=== PATIENT | female | born 1940 | race Caucasian/White ===

== ENCOUNTER 2017-07-21 11:20 | Inpatient (IN) | payer MEDICARE, OTHER ==
[2017-07-21 11:47] LABS: % BASOPHILS 0.3 % (0.0-2.0); % EOSINOPHILS 1.7 % (0.0-5.0); % LYMPHOCYTES 17.9 % (20.0-50.0); % MONOCYTES 5.9 % (2.0-10.0); % NEUTROPHILS 74.2 % (40.0-80.0); EOSINOPHILE ABSOLUTE 0.1 Th/cmm (0.1-0.4); HEMATOCRIT 28.9 % (41.0-60); HEMOGLOBIN 9.7 gm/dL (12-16); LYMPHOCYTE ABSOLUTE 1.3 Th/cmm (1.5-3.0); MEAN CELL VOLUME 85.1 fl (81-100); MEAN CORPUSCULAR HEMOGLOBIN 28.6 pg (27.0-31.0); MEAN CORPUSCULAR HGB CONC 33.6 pg (28.0-36.0); MEAN PLATELET VOLUME 7.4 fl; MONOCYTE ABSOLUTE 0.4 Th/cmm (0.3-1.0); NEUTROPHILE ABSOLUTE 5.5 Th/cmm (1.8-8.0); PLATELET COUNT 338 Th/cmm (150-400); RED BLOOD COUNT 3.39 Mil/cmm (3.80-5.20); WHITE BLOOD COUNT 7.3 Th/cmm (4.8-10.8)
[2017-07-21 12:09] LABS: ALB/GLOB RATIO 1.2 (1.0-1.8); ALBUMIN 4.2 gm/dL (3.7-5.3); ALKALINE PHOSPHATASE 77 U/L (34-104); ANION GAP 15.6 (7.0-16.0); BILIRUBIN,TOTAL 0.3 mg/dL (0.3-1.0); BUN - UREA NITROGEN 32 mg/dL (7-25); CALCIUM SERUM 9.7 mg/dL (8.6-10.3); CARBON DIOXIDE 22.9 mEq/L (21.0-31.0); CHLORIDE 97 mEq/L (98-107); CHOLESTEROL 135 mg/dL (<200); CREATININE - SERUM 1.2 mg/dL (0.6-1.2); GLUCOSE 136 mg/dL (70-105); HDL -HIGH DENSITY LIPOPROTEIN 46 mg/dL (23-92); POTASSIUM SERUM 3.5 mEq/L (3.5-5.1); SGOT 29 U/L (13-39); SGPT/ALT 24 U/L (7-52); SODIUM SERUM 132 mEq/L (136-145); TOTAL PROTEIN,SERUM 7.7 gm/dL (6.0-8.3); TRIGLYCERIDES 229 mg/dL (<150)
[2017-07-21 12:11] LABS: ALB/GLOB RATIO 1.2 (1.0-1.8); ALBUMIN 4.2 gm/dL (3.7-5.3); BILIRUBIN,DIRECT 0.06 mg/dL (0.0-0.2); BILIRUBIN,TOTAL 0.4 mg/dL (0.3-1.0); TOTAL PROTEIN,SERUM 7.7 gm/dL (6.0-8.3)
[2017-07-21] MEDS ORDERED: Non-Formulary Item 1 EA (Acetaminophen [8 Hour] 650 MG) PO PRN (14:20)
[2017-07-21 14:21] VITALS: BP 181/83
[2017-07-21] MEDS ORDERED: Pneumococcal Vaccine 0.5 mL Vial IM ONE (15:01)
[2017-07-21] MEDS: INSULIN ASPART SLIDING SCALE 100 UNITS/ML UNIT SUBQ SCH ×2 (16:52→20:50)
--- NOTE | 2017-07-21 20:39 | ER Physician Documentation ---
DATE OF SERVICE: 07/21/2017 She is here for psych evaluation and to check for any medical conditions by Dr. Rabia Barba. They wanted us to check if there are any serious medical problems. If not, then the patient can go to psych [facility]. The patient has been combative for the past 2 days. The patient's vital signs were taken by the triage nurse at 11:30 in the morning and patient's vital signs showed temperature 98.2, pulse 101, respirations 23, blood pressure 190/66, then it came down to 150/57 or so. Oxygen saturation 97%. Medical treatment, etc., are all in the chart. The patient's physician is Dr. Rabia Barba. The patient's other physician is, Dr. Shahriar Calvillo. [facility], primary contact is Rduolph Shetty. The patient's family is Siomara Jeramie, Lowell Jeramie, Anders Natarajan, Cam Shaymatt. These are the 4 people. The patient was asked questions about her complaint. She denies any specific complaint. REVIEW OF SYSTEMS: Essentially benign and negative. HISTORY OF PRESENT ILLNESS: The patient has no history of any chest pain, myocardial infarction, rheumatic fever, valvular heart disease, or pericardial disease. No lung pneumonia, TB, pulmonary embolism. No history constitutional symptoms. The patient came from the psych facility to this facility for continuation of the treatment. The patient came from [address] [address]. The patient's Medicaid number, [facility] [id number]. REVIEW OF SYSTEMS: EYES: Within normal limits, no double vision, no blurring, or no blindness. CENTRAL NERVOUS SYSTEM: No history of TIA, stroke, encephalitis, meningitis. PULMONARY: No pneumonia or TB, or pulmonary embolism. GENITOURINARY: The patient has chronic kidney disease stage 3, moderate. The patient has hyperlipidemia, anxiety disorder, type 2 diabetes mellitus, hypertension, chronic kidney disease, stage 1 to stage IV chronic kidney disease or unspecified chronic kidney disease. The patient's abdomen has no complaints. The patient will occasionally take some iron tablets, a Colace suppository, etc. For her hypertension, she takes losartan, potassium, hydrochloride tablet 100/25 mg 1 tablet by mouth a day, lovastatin. She has hypercholesterolemia, milk of magnesia, multivitamin, etc., have been taken by the patient. If the medical clearance comes back to be negative, then the patient will be transferred to the psych facility. CARDIAC: No angina pectoris, myocardial infarction, rheumatic fever, valvular heart disease, etc. CENTRAL NERVOUS SYSTEM: The patient has anxiety, Alzheimer's disease, dementia. She has anxiety. She has hypertension, hypertensive heart disease. She has diabetes mellitus. The patient had x-rays of the wrist because of some injury and it was found to be within normal limits. LABORATORY DATA: The patient had lab workup done at the [facility] showing BUN to be 25, creatinine 0.9, sodium 141, potassium 4.5, chloride 103, CO2 of 28. White count is normal. Other lab workup was found to be normal at the [facility], but we will check it out here. PHYSICAL EXAMINATION: GENERAL: The patient appears to be awake, alert, oriented, not in any acute cardiac distress. She appears to be ____. HEENT: Normal. Jugular venous pressure is normal. She was admitted from [facility] on 07/10/2016. ____ exam benign and negative. NECK: Supple. Eyes are normal. Conjunctivae pink. Sclerae white. No evidence of any jaundice and no deep vein thrombophlebitis. No cyanosis, petechia, ecchymosis. CHEST: Clear. Trachea being central. Good air entry in both lungs. No rales, rhonchi or bronchial breathing. ABDOMEN: Soft, benign, negative. Liver and spleen not enlarged. No free fluid in abdominal cavity. CENTRAL NERVOUS SYSTEM: Within normal limits. HEART: Reveals normal heart sounds. No fourth heart sound. Second heart sound is physiologically split. Blood pressure is 150/60, it has come back to normal. CLINICAL IMPRESSION: The patient has anxiety disorder, hypertensive disorder. The patient has Alzheimer's disease. The patient has a history of renal failure of stage I to stage IV of chronic kidney disease, hyperlipidemia and dementia classified as ____ without behavioral disturbances. The patient has the diseases that I mentioned earlier, including dementia and chronic kidney disease, hyperlipidemia, anxiety disorder, etc. We are getting some lab workup, EKG, chest x-ray and if they return normal, then the patient will be sent to the psych facility. JOB# [id number]
[2017-07-21 21:30] LABS: A1C % 5.8 % (4.0-6.0)
[2017-07-22] MEDS: INSULIN ASPART SLIDING SCALE 100 UNITS/ML UNIT SUBQ SCH ×4 (06:39→21:27)
[2017-07-22 07:59] LABS: ANION GAP 10.1 (7.0-16.0); BUN - UREA NITROGEN 34 mg/dL (7-25); CALCIUM SERUM 9.9 mg/dL (8.6-10.3); CHLORIDE 99 mEq/L (98-107); CREATININE - SERUM 1.3 mg/dL (0.6-1.2); GLUCOSE 117 mg/dL (70-105); POTASSIUM SERUM 4.1 mEq/L (3.5-5.1); SODIUM SERUM 132 mEq/L (136-145)
--- NOTE | 2017-07-22 08:25 | Diagnostic Imaging Report ---
CHEST X-RAY: AP view INDICATION: Pneumonia COMPARISON: None FINDINGS: Chronic lung changes are seen with no focal consolidation or effusions. There is 4 mm density seen along the left lateral lung zone projecting along the left anterior third rib. No focal consolidation or effusions. Mild cardiomegaly is noted atherosclerosis. Degenerative changes of spine are noted. IMPRESSION: Chronic lung changes with no focal consolidation identified. 4 mm density projecting along the left mid to upper lateral lung zone. This may represent a granuloma, pulmonary scarring scarring or less likely other pulmonary nodules. Please correlate with clinical findings and old exams. Short-term follow-up x-ray in [address] chest would also provide additional detail and assessment. Cardiomegaly and atherosclerotic vascular disease.
[2017-07-22] MEDS ORDERED: LOSARTAN PO SCH (09:00)
[2017-07-22] MEDS ORDERED: HYDROCHLOROTHIAZIDE PO SCH (09:00)
[2017-07-22] MEDS ORDERED: [UNRECOGNIZED DRUG - OTHER] PO SCH (09:00)
[2017-07-22] MEDS: Ferrous Sulfate 325 MG TAB PO SCH (09:50)
[2017-07-22] MEDS: Multivitamin w/ Minerals Tab PO SCH (09:50)
--- NOTE | 2017-07-22 20:34 | Psychosocial Evaluation ---
DATE OF SERVICE: 07/22/2017 JUSTIFICATION FOR HOSPITALIZATION: The patient was brought in for psych eval apparently quite combative. CHIEF COMPLAINT: "They brought me here." HISTORY OF PRESENT ILLNESS: A 77-year-old brought in for psych evaluation. The patient has apparently been combative over the past 48 hours, unruly, agitated, unable to be cared for at a lower level of care. On [id number], the patient is a poor historian. She is noting "they brought me here," not answering most questions. Denies that she is depressed. Denies that she is suicidal. States "I have diabetes and high blood sugar." Apparently, she has a documented history of dementia. PAST PSYCHIATRIC HISTORY: Dementia. FAMILY HISTORY: Noncontributory. SOCIAL HISTORY: The patient was born in [place] [facility], she does not tell me what country that is. Not . She states she has 9 kids. She states she lives in an apartment with the family. Her address is in [place]. MEDICATIONS: Noted. MENTAL STATUS EXAMINATION: Stated age. Fair eye contact. Speech within normal limits. Somewhat disoriented on exam, poor historian, evasive with interview. No overt SI or HI. It seems she was quite unruly, unclear psychotic symptoms. Insight and judgment diminished. Poor impulse control. PROVISIONAL DIAGNOSES: Dementia with behavioral disturbances; psychosis, unspecified; anxiety, unspecified; mood, unspecified. Medical: Please see full H and P. ESTIMATED LENGTH OF STAY: 5-6 days. ASSESSMENT: The patient requiring inpatient hospitalization, agitated, upset, not safe for a lower level of care. PLAN: We will continue to monitor. Given her ongoing symptoms, she is not safe for discharge. TREATMENT PLAN: Includes group as well as milieu therapy. CONDITIONS FOR DISCHARGE: Improved mood, improved affect, better control of any agitation. [facility]# [id number]
--- NOTE | 2017-07-22 20:57 | History & Physical ---
ADMIT DATE: 07/21/2017 CHIEF COMPLAINT: Worsening confusion, high blood pressure and high blood sugars. HISTORY OF PRESENT ILLNESS: The patient is a confused 77-year-old female who is a patient of mine at [facility]. She has history of diabetes, hypertension, and Alzheimer dementia. Lately, she has been becoming more confused, more altered and more inappropriate with the staff as well. She was admitted to the Geropsych Unit. She was found to have very high blood pressure, high blood sugars as well. PAST MEDICAL HISTORY: Significant for Alzheimer's dementia, anemia, hypertension, diabetes. SOCIAL HISTORY: No history of alcohol, tobacco, or drug abuse. FAMILY HISTORY: Noncontributory. ALLERGIES: No known drug allergies. SURGICAL HISTORY: No recent major surgeries. MEDICATIONS: All medications reviewed and reconciled. REVIEW OF SYSTEMS: GENERAL: Positive recent fatigue and worsening confusion. HEENT: No recent head trauma, change in vision, taste, hearing, or smell. Oral: No recent pain or discharge. PSYCHIATRIC: Positive for worsening confusion and inappropriate behavior as well. She has poor impulse control. ABDOMEN: No recent pain or distension. ENDOCRINE: She has a history of diabetes. CARDIOVASCULAR: She has history of hypertension. SKIN: No recent rashes. RESPIRATORY: No history of COPD or asthma. NEUROLOGIC: No history of stroke or seizure. Positive for worsening confusion. PHYSICAL EXAMINATION: VITAL SIGNS: Temperature 98.1 degrees, heart rate is 62, respiration is 18, blood pressure 149/65. Currently, no pain. GENERAL: No acute distress. She is awake, alert to name and place. She is confused at baseline. HEENT: No acute issues. NECK: Trachea is midline. CARDIOVASCULAR: Regular rate and rhythm. SKIN: No rashes. PSYCHIATRIC: No psychosis or hallucinations currently, but she has labile mood. EXTREMITIES: No edema. RESPIRATORY: Decreased breath sounds bilaterally. MUSCULOSKELETAL: She has unsteady gait. NEUROLOGIC: No evidence of acute stroke or seizure activity. She is confused. ABDOMEN: Nontender, nondistended. EYES: No discharge. LABORATORY DATA: UA is still pending. White count is 7.3, hemoglobin 9.7, platelet count 338,000. Sodium 132, potassium 3.5, chloride 97, bicarbonate 22.9, BUN 32, creatinine 1.2, glucose 136 and last night it was 254. Magnesium is 1.3. Chest x-ray does not show any acute abnormalities. It does show, however, a 4 mm density along the left mid to upper lateral lung zone. ASSESSMENT: 1. Hyponatremia. 2. Anemia of chronic illness. 3. Diabetes mellitus. 4. Hypomagnesemia. 5. Accelerated hypertension. 6. Dementia, Alzheimer's type with exacerbation. 7. 4 mm density in the left lung. PLAN: The patient's UA is still pending. I have put her on oral mag ox 400 mg b.i.d. I will recheck magnesium level in about 3 days. Blood pressure medications have been adjusted. Continue ADL support. Continue fall precaution. She can benefit from psychiatric evaluation. Continue fingerstick blood sugar and regular insulin sliding scale. Regarding the 4 mm density, she will likely need a repeat x-ray in about 3 months. She is currently asymptomatic. She has no pulmonary symptoms. [facility]# [id number]
[2017-07-23] MEDS: INSULIN ASPART SLIDING SCALE 100 UNITS/ML UNIT SUBQ SCH ×4 (06:47→20:32)
[2017-07-23] MEDS: Multivitamin w/ Minerals Tab PO SCH (10:02)
[2017-07-23] MEDS: Ferrous Sulfate 325 MG TAB PO SCH (10:02)
--- NOTE | 2017-07-23 20:26 | Progress Notes ---
DATE: 07/23/2017 SUBJECTIVE: The patient brought in for psych evaluation, combative over the past few days, unruly, agitated. The patient is not a good historian. Staff noting she is responding to internal stimuli, selectively mute, stating everybody around her is crazy, "they brought me here." ____ the patient with a documented history of dementia, occlusive, not saying much, seems paranoid. ASSESSMENT: The patient remains symptomatic. History of dementia, still unruly behaviors, concerns for psychotic behaviors. PLAN: We will continue to monitor. Continue Aricept and Namenda. The patient's behaviors are ongoing. I may need to initiate low dose Risperdal. We will continue to monitor. JOB# [id number]
[2017-07-24] MEDS: INSULIN ASPART SLIDING SCALE 100 UNITS/ML UNIT SUBQ SCH ×4 (06:34→20:23)
[2017-07-24] MEDS: Ferrous Sulfate 325 MG TAB PO SCH (09:36)
[2017-07-24] MEDS: Multivitamin w/ Minerals Tab PO SCH (09:36)
--- NOTE | 2017-07-24 18:09 | Progress Notes ---
DATE: 07/24/2017 SUBJECTIVE: The patient brought in, combative, believes that she is here because "they are crazy," talking about scandals ____ there are too many scandals, does not know where she is, does not know why she is here. Staff noting she has been mumbling to self, responding to internal stimuli. The patient remains irritable, reclusive. ASSESSMENT: The patient is symptomatic, history of dementia, still isolative, seems to be psychotic. PLAN: We will continue to monitor. The patient may benefit from dosing of antipsychotic medications given evidence of psychotic symptoms. We will monitor and follow up. JOB# [id number]
[2017-07-25] MEDS: INSULIN ASPART SLIDING SCALE 100 UNITS/ML UNIT SUBQ SCH ×5 (06:36→21:28)
[2017-07-25] MEDS: Ferrous Sulfate 325 MG TAB PO SCH (08:58)
[2017-07-25] MEDS: Multivitamin w/ Minerals Tab PO SCH (08:58)
--- NOTE | 2017-07-25 17:40 | Progress Notes ---
DATE: 07/25/2017 The patient brought in, combative behaviors, responding to internal stimuli, psychotic, unruly, at times refusing care, seemingly calmer than upon initial presentation. I did contact the family yesterday, unfortunately I was not able to get in touch with them. The patient remains reclusive and mostly in bed, not answering most questions. ASSESSMENT: The patient is symptomatic, history of dementia, still with ongoing psychotic symptoms, refusing care at times, still unruly. PLAN: We will continue to monitor. Given her ongoing symptoms, she is not safe for discharge. I will attempt to re-contact family today. JOB# [id number]
[2017-07-26] MEDS: INSULIN ASPART SLIDING SCALE 100 UNITS/ML UNIT SUBQ SCH ×4 (06:54→20:27)
[2017-07-26] MEDS: Multivitamin w/ Minerals Tab PO SCH ×2 (08:39→08:58)
[2017-07-26] MEDS: Ferrous Sulfate 325 MG TAB PO SCH (08:40)
--- NOTE | 2017-07-26 12:32 | Progress Notes ---
DATE: 07/26/2017 HISTORY OF PRESENT ILLNESS: A 77-year-old female remains psychotic, symptomatic, reclusive, isolative, mostly in her room, not answering most questions. She does not know where she is. She does not know why she is here. She does know the year, the month. States she is in the hospital "for eating." I did speak with family. Risperdal was initiated with her consent. She is selective with some of her medications, only wants to take medications for clinical memory. MEDICATIONS: Noted. ASSESSMENT: The patient remains symptomatic, still with ongoing psychotic symptoms, irritable and isolative. PLAN: Continue to monitor. Continue Risperdal, encourage better med compliance. No EPS noted on exam. JOB# [id number]
[2017-07-26 15:39] LABS: ANION GAP 10.6 (7.0-16.0); BUN - UREA NITROGEN 44 mg/dL (7-25); CARBON DIOXIDE 25.6 mEq/L (21.0-31.0); CHLORIDE 97 mEq/L (98-107); CREATININE - SERUM 1.3 mg/dL (0.6-1.2); GLUCOSE 114 mg/dL (70-105); POTASSIUM SERUM 4.2 mEq/L (3.5-5.1); SODIUM SERUM 129 mEq/L (136-145)
[2017-07-27] MEDS: INSULIN ASPART SLIDING SCALE 100 UNITS/ML UNIT SUBQ SCH ×4 (06:38→21:06)
--- NOTE | 2017-07-27 06:50 | Progress Notes ---
DATE: 07/26/2017 SUBJECTIVE: A 77-year-old female, still psychotic, very isolative, mostly in her room, mumbling to self in Frisian, mumbling to herself in Vietnamese, not wanting to answer any questions. Risperdal was initiated. She is still psychotic, still symptomatic. Staff noting she remains irritable. Medications were reviewed. No medication side effects were noted. ASSESSMENT: The patient remains symptomatic, ongoing psychotic symptoms. PLAN: We will continue to monitor. We will be increasing the Risperdal today. JOB# [id number]
[2017-07-27] MEDS: Multivitamin w/ Minerals Tab PO SCH (09:10)
[2017-07-27] MEDS: Ferrous Sulfate 325 MG TAB PO SCH (09:10)
[2017-07-28] MEDS: INSULIN ASPART SLIDING SCALE 100 UNITS/ML UNIT SUBQ SCH ×4 (06:50→21:20)
--- NOTE | 2017-07-28 07:00 | Progress Notes ---
DATE: 07/28/2017 SUBJECTIVE: A 77-year-old female who remains isolative, mostly in her room, still mumbling to self. Still over occlusive, still isolating a lot. No medication side effects were noted. Still seems paranoid, not wanting to talk. Medications were noted. ASSESSMENT: The patient remains symptomatic, ongoing psychotic symptoms, paranoid, not safe for a lower level of care. PLAN: We will continue to monitor. We will be titrating and adjusting her medications. [facility]# [id number]
[2017-07-28] MEDS: Multivitamin w/ Minerals Tab PO SCH (08:43)
[2017-07-28] MEDS: Ferrous Sulfate 325 MG TAB PO SCH (08:43)
[2017-07-29] MEDS: INSULIN ASPART SLIDING SCALE 100 UNITS/ML UNIT SUBQ SCH ×4 (07:14→21:23)
[2017-07-29] MEDS: Multivitamin w/ Minerals Tab PO SCH (09:23)
[2017-07-29] MEDS: Ferrous Sulfate 325 MG TAB PO SCH (09:23)
--- NOTE | 2017-07-29 13:45 | General Progress Note ---
Subjective - Review of Systems Service Date: 07/29/17 Events since last encounter: The patient has ongoing psychiatric symptoms, but is responding well to treatment. Labs revealed hyponatremia. Repeat labs have been ordered. Subjective: The patient is resting in bed. No complaints. Remains altered. Denies fevers and chills. No s/s of pain or distress. Objective - Results Result Diagrams: 07/21/17 11:37 07/26/17 15:18 Recent Labs: Laboratory Last Values WBC 7.3 Th/cmm (4.8-10.8) 07/21/17 11:37 RBC 3.39 Mil/cmm (3.80-5.20) L 07/21/17 11:37 Hgb 9.7 gm/dL (12-16) L 07/21/17 11:37 Hct 28.9 % (41.0-60) L 07/21/17 11:37 MCV 85.1 fl (81-100) 07/21/17 11:37 MCH 28.6 pg (27.0-31.0) 07/21/17 11:37 MCHC Differential 33.6 pg (28.0-36.0) 07/21/17 11:37 RDW 13.0 % (11.5-20.0) 07/21/17 11:37 Plt Count 338 Th/cmm (150-400) 07/21/17 11:37 MPV 7.4 fl 07/21/17 11:37 Neutrophils % 74.2 % (40.0-80.0) 07/21/17 11:37 Lymphocytes % 17.9 % (20.0-50.0) L 07/21/17 11:37 Monocytes % 5.9 % (2.0-10.0) 07/21/17 11:37 Eosinophils % 1.7 % (0.0-5.0) 07/21/17 11:37 Basophils % 0.3 % (0.0-2.0) 07/21/17 11:37 Sodium 129 mEq/L (136-145) L 07/26/17 15:18 Potassium 4.2 mEq/L (3.5-5.1) 07/26/17 15:18 Chloride 97 mEq/L (98-107) L 07/26/17 15:18 Carbon Dioxide 25.6 mEq/L (21.0-31.0) 07/26/17 15:18 Anion Gap 10.6 (7.0-16.0) 07/26/17 15:18 BUN 44 mg/dL (7-25) H 07/26/17 15:18 Creatinine 1.3 mg/dL (0.6-1.2) H 07/26/17 15:18 Est GFR ( Amer) TNP 07/26/17 15:18 Est GFR (Non-Af Amer) TNP 07/26/17 15:18 BUN/Creatinine Ratio 33.8 07/26/17 15:18 Glucose 114 mg/dL (70-105) H 07/26/17 15:18 POC Glucose 108 MG/DL (70 - 105) H 07/22/17 05:35 Hemoglobin A1c % 5.8 % (4.0-6.0) 07/21/17 11:37 Calcium 10.0 mg/dL (8.6-10.3) 07/26/17 15:18 Magnesium 1.3 mg/dL (1.9-2.7) L 07/21/17 11:37 Total Bilirubin 0.4 mg/dL (0.3-1.0) 07/21/17 11:37 Direct Bilirubin 0.06 mg/dL (0.0-0.2) 07/21/17 11:37 AST 28 U/L (13-39) 07/21/17 11:37 ALT 23 U/L (7-52) 07/21/17 11:37 Alkaline Phosphatase 77 U/L (34-104) 07/21/17 11:37 Total Protein 7.7 gm/dL (6.0-8.3) 07/21/17 11:37 Albumin 4.2 gm/dL (3.7-5.3) 07/21/17 11:37 Globulin 3.5 gm/dL 07/21/17 11:37 Albumin/Globulin Ratio 1.2 (1.0-1.8) 07/21/17 11:37 Triglycerides 229 mg/dL (<150) H 07/21/17 11:37 Cholesterol 135 mg/dL (<200) 07/21/17 11:37 LDL Cholesterol Direct 70 mg/dL (75-193) L 07/21/17 11:37 HDL Cholesterol 46 mg/dL (23-92) 07/21/17 11:37 Lipase 33 U/L (11-82) 07/21/17 11:37 - Physical Exam Vitals and I&O: Vital Signs Temp 98.1 F 07/28/17 17:26 Pulse 70 07/29/17 09:29 Resp 18 07/28/17 17:26 BP 152/60 07/29/17 09:29 Pulse Ox 100 07/28/17 17:26 Active Medications: Current Medications Acetaminophen (Tylenol) 650 mg PO Q4HR PRN PRN Reason: Pain (Moderate) Stop: 09/19/17 14:25 Last Admin: 07/26/17 09:28 Dose: 650 mg Bisacodyl (Dulcolax 10 Mg Supp) 10 mg RC DAILY PRN PRN Reason: IF MOM INEFFECTIVE Stop: 09/19/17 14:19 Docusate Sodium (Colace) 250 mg PO DAILY [facility] Stop: 09/20/17 08:59 Last Admin: 07/29/17 09:23 Dose: 250 mg Donepezil HCl (Aricept) 10 mg PO HS [facility] Stop: 09/19/17 20:59 Last Admin: 07/28/17 21:20 Dose: Not Given Ferrous Sulfate (Iron) 325 mg PO DAILY [facility] Stop: 09/20/17 08:59 Last Admin: 07/29/17 09:23 Dose: 325 mg Hydrochlorothiazide (Hctz) 25 mg PO DAILY [facility] Stop: 09/20/17 08:59 Last Admin: 07/29/17 09:29 Dose: 25 mg Insulin Aspart (Novolog Insulin Sliding Scale) 0 units SUBQ ACHS JOAQUIM PRN Reason: Protocol Stop: 09/19/17 16:29 Last Admin: 07/29/17 11:36 Dose: Not Given Lorazepam (Ativan) 0.5 mg PO Q6HR PRN; Protocol PRN Reason: anxiety/agitation Stop: 09/20/17 02:51 Last Admin: 07/24/17 21:00 Dose: 0.5 mg Losartan Potassium (Cozaar) 100 mg PO DAILY [facility] Stop: 09/20/17 08:59 Last Admin: 07/29/17 09:29 Dose: 100 mg Memantine (Namenda) 5 mg PO BID [facility] Stop: 09/19/17 16:59 Last Admin: 07/29/17 09:23 Dose: 5 mg Metoprolol Tartrate (Lopressor) 50 mg PO BID JOAQUIM Stop: 09/20/17 08:59 Last Admin: 07/29/17 09:29 Dose: 50 mg Risperidone (Risperdal) 0.5 mg PO BID JOAQUIM PRN Reason: Protocol Stop: 09/25/17 08:59 Last Admin: 07/29/17 09:23 Dose: 0.5 mg Zolpidem Tartrate (Ambien) 5 mg PO HS PRN PRN Reason: Insomnia Stop: 09/19/17 14:21 Last Admin: 07/24/17 21:00 Dose: 5 mg General: Alert, Cooperative, No acute distress HEENT: Atraumatic, PERRLA Neck: Supple, JVD Cardiovascular: Regular rate, Normal S1, Normal S2 Lungs: Clear to auscultation, Normal air movement Abdomen: Bowel sounds Neurological: Normal tone, Sensation intact Psych/Mental Status: Other (altered) Assessment/Plan - Problem List Patient Problems: All Active Problems [facility] (Acute) - Assessment Assessment: Metabolic encephalopathy 2/2 alzheimers dementia exacerbation hyponatremia psychosis anemia of chronic illness dm hypomagnesemia accelerated htn 4 mm lung nodule - Plan Plan: Psych is following. Labs have been ordered. Follow up ct in 3 months for a 4 mm lung nodule.Continue donepezil, memantine, risperidone. Metoprolol, hctz for bp control Nutritional Asmnt/Malnutr-PDOC - Dietary Evaluation Malnutrition Findings (Please click <Entered> for more info): Nutritional Asmnt/Malnutrition Start: 07/26/17 10: 38 Text: Status: Complete Freq: Document 07/26/17 10:38 ADELINE (Rec: 07/26/17 10:[email or web address] Nutritional Asmnt/Malnutrition Patient General Information Nutritional Screening Moderate Risk Diagnosis psychosis NOS Pertinent Medical Hx/Surgical Hx alzheimer's dementia, anemia, HTN, DM Subjective Information Per EMR, PO intake 100% x 3 meals on 07/25. PO intake varied between 50-100%. Current Diet Order/ Nutrition Support CCHO Pertinent Medications novolog, iron Pertinent Labs 07/22 Na 132, BUN 34, Cr 1.3, Glucose 117, POC 108 07/21 Na 132, Cl 97, BUN 32, Glucose 136, A1c 5.8 Nutritional Hx/Data Height 1.55 m Height (Calculated Centimeters) 154.9 Current Weight (lbs) 65.771 kg Weight (Calculated Kilograms) 65.8 Weight (Calculated Grams) 04919.9 [place] Body Weight 105 Body Mass Index (BMI) 27.3 Weight Status Overweight GI Symptoms GI Symptoms None Last BM 07/24 Difficult in: None Skin Integrity/Comment: intact Current %PO Good (75-100%) Estimated Nutritional Goals BEE in Kcals: Adj wt of IBW Calories/Kcals/Kg 25-30 Kcals Calculated 5201-2549 Protein: Adj wt of IBW Protein g/k-1.2 Protein Calculated 52-62 Fluid: ml 1300-1560ml (1ml/kcal) Nutritional Problem 1. Problem Problem altered nutrition related labs Etiology hx of DM Signs/Symptoms: Glucose 117-136, POC 108 Malnutrition Alert Protein-Calorie Malnutrition N/A Is there a minimum of two criteria No selected? Query Text:Check all the applicable criteria. A minimum of two criteria are recommended for diagnosis of either severe or non-severe malnutrition. Intervention/Recommendation Comments 1. Continue with [facility] diet as ordered. 2. Monitor PO intake, wt, labs and skin integrity 3. F/U as low risk in 7 days, 08/02, PO check 07/30 Expected Outcomes/Goals Expected Outcomes/Goals 1. PO intake to meet at least 75% of nutritional needs. 2. Wt stability, skin to remain intact, labs to approach WNL.
--- NOTE | 2017-07-29 23:41 | Progress Notes ---
DATE: 07/29/[address] Burdick. Case was discussed with staff of patient, reviewed records. This is a 77-year-old female who was admitted on 07/21/2017. The patient has been combative, agitated, and unable to be cared for at a lower level of care. She was a poor historian, not answering most questions with a history of dementia. Continues to be confused, isolating herself. Continues to be paranoid. Her current medication includes Aricept 10 mg at bedtime, Namenda 5 mg twice a day and Risperdal 0.5 mg twice a day with no side effects, no sedation, no nausea, no extrapyramidal symptoms. We will continue with patient in group therapy, milieu therapy and adjust medications as needed. [facility]# [id number]
[2017-07-30] MEDS: INSULIN ASPART SLIDING SCALE 100 UNITS/ML UNIT SUBQ SCH ×4 (06:42→20:49)
[2017-07-30] MEDS: Multivitamin w/ Minerals Tab PO SCH (08:54)
[2017-07-30] MEDS: Ferrous Sulfate 325 MG TAB PO SCH (08:55)
--- NOTE | 2017-07-30 22:20 | Progress Notes ---
DATE: 07/30/2017 Case was discussed with staff of the patient and reviewed records. The patient has been having episodes since her medication; however, there is one of the nurses, who speaks Sami, but she taken from her. She continues to be unpredictable, impulsive, internally preoccupied, and unable to make safe plan for self-care. Continues to have poor insight. She is demented and confused. No side effects to the medication, no sedation, no nausea, and no extrapyramidal symptoms. We will continue to work with the patient in group therapy, milieu therapy, and adjust the medications as needed. JOB# [id number]
[2017-07-31] MEDS: INSULIN ASPART SLIDING SCALE 100 UNITS/ML UNIT SUBQ SCH ×2 (06:40→12:11)
[2017-07-31] MEDS: Ferrous Sulfate 325 MG TAB PO SCH (08:46)
[2017-07-31] MEDS: Multivitamin w/ Minerals Tab PO SCH (08:47)
--- NOTE | 2017-08-01 02:19 | Progress Notes ---
DATE: 07/31/2017 LOCATION: [facility], [address]. Case was discussed with staff. The patient is ____. The patient continues to have episode where she refused her medication. She is sleeping better, eating better. She continues to be unpredictable, impulsive, needing redirection and will continue outpatient group therapy, milieu therapy, and adjust medications as needed. JOB# [id number]
== END 2017-07-31 15:10 | DRG 885 ==
LOC: ER 11:20 → GERO2 12:30
PROVIDERS: ADMIT Psychiatry & Neurology Psychiatry; ATTEND Psychiatry & Neurology Psychiatry
DX: F29 Unspecified psychosis not due to a substance or known physiological condition (principal); F02.81 Dementia in other diseases classified elsewhere, unspecified severity, with behavioral disturbance; N18.4 Chronic kidney disease, stage 4 (severe); E11.22 Type 2 diabetes mellitus with diabetic chronic kidney disease; E87.1 Hypo-osmolality and hyponatremia; D63.8 Anemia in other chronic diseases classified elsewhere; E83.42 Hypomagnesemia; G30.9 Alzheimer's disease, unspecified; J98.4 Other disorders of lung; E78.5 Hyperlipidemia, unspecified; F39 Unspecified mood [affective] disorder; F41.9 Anxiety disorder, unspecified; I12.9 Hypertensive chronic kidney disease with stage 1 through stage 4 chronic kidney disease, or unspecified chronic kidney disease
CPT/HCPCS: 36415-UA; 71045-TC; 80048-TC; 80053-TC; 80061-TC; 80076-TC; 82948-90; 83036-90; 83690-TC; 83735-TC; 85025-TC; 90732; 93005; J1815; Z7610